=== PATIENT | male | born 1970 | race Hispanic/Latino ===

== ENCOUNTER 2025-05-08 16:40 | Emergency (ER) | payer OTHER ==
[~2025-05-08] VITALS: Ht 157.5 cm; Wt 101.2 kg
--- NOTE | 2025-05-08 16:49 | ERN ---
ED Note History of Present Illness Stated Complaint: ANXIETY, SOB, VOMITING Chief Complaint: Anxiety/Panic Attack Time Seen by MD: 16:43 Time Seen by Midlevel: 16:46 Dictation: Mr. Can is a 54 year old gentleman with history of obesity, hypertension, hyperlipidemia, anxiety, and obstructive sleep apnea who presented to the emergency department this afternoon for evaluation of anxiety. He states that he has been waking up feeling anxious and shortness of breath. This afternoon symptoms worsened and he was feeling chills, nausea, vomiting, and soft stools. He states he does smoke marijuana with last use yesterday. He denies fever, cough, chest pain, palpitations, edema, abdominal pain, hematemesis, constipation, melena, hematochezia, dysuria, headache, dizziness, or focal weakness/paresthesia. PCP: [facility] Allergies: Coded Allergies: No Known Drug Allergies (Unverified Allergy, Unknown, 05/08/25) Past Medical History Past Medical History: Anxiety, High Cholesterol, Hypertension, Other (Obesity, obstructive sleep apnea) PSYCH History: anxiety Family History: CAD Social History: Drugs (smokes marijuana) RN Note Reviewed/Agreed w/PFSH: Yes Review of System Dictation REVIEW OF SYSTEMS: CONSTITUTIONAL: Patient denies fevers, sweats and weight changes. Reports fatigue and chills. EYES: Patient denies any visual symptoms. EARS, NOSE, AND THROAT: No difficulties with hearing. No symptoms of rhinitis or sore throat. CARDIOVASCULAR: Patient denies chest pains, palpitations, orthopnea and paroxysmal nocturnal dyspnea. RESPIRATORY: No dyspnea on exertion, no wheezing or cough. Reports shortness of breath. GI: No constipation, abdominal pain, hematochezia or melena. Reports loose/soft stools. Reports nausea and vomiting. : No urinary hesitancy or dribbling. No nocturia or urinary frequency. No abnormal urethral discharge. MUSCULOSKELETAL: No myalgias or arthralgias. NEUROLOGIC: No chronic headaches, no seizures. Patient denies numbness, tingling or weakness. PSYCHIATRIC: Patient denies problems with mood disturbance. Reports feeling anxious. ENDOCRINE: No excessive urination or excessive thirst. DERMATOLOGIC: Patient denies any rashes or skin changes. Initial Vital Sign VS Vital Signs Date Time Temp Pulse Resp B/P (MAP) Pulse Ox O2 Delivery O2 Flow Rate FiO2 05/08/25 16:44 97.9 102 20 144/101 97 Room Air 0 05/08/25 17:44 21 Physical Exam Dictation Vital signs: Reviewed. Afebrile. Constitutional: Anxious. Head/Face: Normocephalic, atraumatic. Eyes: Periorbital areas with no swelling, redness, or edema. Lids and lashes are normal. Conjunctival injection is absent. Sclera anicteric. Pupils equal, round, reactive to light. ENT: Pinnas intact and no signs of trauma or erythema. Ear canals clear and no discharge. TMs no erythema. No nasal discharge or bleeding noted. Oropharynx with no exudate, redness, swelling, masses, exudates, or evidence of obstruction. Uvula midline. Mucous membranes moist. Neck: Trachea midline, no masses palpated, and no cervical lymphadenopathy. No swelling. Supple, full range of motion. Chest/Axilla: No tenderness, no crepitus, no paradoxical movement, no retractions. Cardiovascular: Regular rate, regular rhythm, no murmur, no gallops. Symmetric pulses. No peripheral edema. BP 144/101. Respiratory: Respirations even and unlabored. Lung sounds clear; no wheezes, rales or rhonchi. Room air spo2 97% Gastrointestinal:Obese. No distention is appreciated. Bowel sounds are normal. No mass or organomegaly . There is no tenderness. No rebound. No rigidity. No voluntary or involuntary guarding. No Almonte's sign. Neurological: Normal speech, gross motor function intact, gross sensory function intact. No focal weakness/Paresthesia. Musculoskeletal/Extremities: All extremities have full range of motion, no pain or tenderness on palpation. Symmetric pulses. Integumentary: Intact. Skin is normal color, warm and dry. Cap refill less than 3 seconds. Results (Laboratory/Radiology) Laboratory/Radiology Laboratory Tests Test 05/08/25 16:59 05/08/25 17:34 White Blood Count 6.6 K/uL (4.8-10.8) Red Blood Count 4.53 MIL/uL (4.50-6.20) Hemoglobin 15.5 g/dL (14.0-18.0) Hematocrit 45.2 % (42-54) Mean Corpuscular Volume 99.8 fL (79-99) H Mean Corpuscular Hemoglobin 34.2 pg (27.0-33.0) H Mean Corpuscular Hemoglobin Concent 34.3 g/dL (32.0-36.0) Red Cell Distribution Width 13.1 % (11.0-15.5) Platelet Count 186 K/uL (130-400) Mean Platelet Volume 10.0 fL (7.5-10.5) Immature Granulocyte % (Auto) 0.5 % (0-1) Neutrophils (%) (Auto) 66.9 % (40.0-77.0) Lymphocytes (%) (Auto) 18.1 % (21.0-51.0) L Monocytes (%) (Auto) 11.9 % (3.0-13.0) Eosinophils (%) (Auto) 2.3 % (0.0-8.0) Basophils (%) (Auto) 0.3 % (0.0-5.0) Neutrophils # (Auto) 4.4 K/uL (1.8-7.7) Lymphocytes # (Auto) 1.2 K/uL (1.0-4.8) Monocytes # (Auto) 0.8 K/uL (0.1-1.0) Eosinophils # (Auto) 0.15 K/uL (0.00-0.70) Basophils # (Auto) 0.02 K/uL (0.00-0.20) Absolute Immature Granulocyte (auto 0.03 K/uL (0-1) Nucleated Red Blood Cells 0.0 % (0.0-0.19) Sodium Level 136 mmol/L (136-145) Potassium Level 3.9 mmol/L (3.5-5.1) Chloride Level 102 mmol/L (101-111) Carbon Dioxide Level 29 mmol/L (21-32) Blood Urea Nitrogen 4 mg/dL (7-18) L Creatinine 0.9 mg/dL (0.5-1.3) Glomerular Filtration Rate Calc 100 mL/min (>90) Random Glucose 118 mg/dL (70-105) H Total Calcium 9.0 mg/dL (8.5-10.1) Total Bilirubin 0.5 mg/dL (0.2-1.0) Direct Bilirubin 0.1 mg/dL (0.0-0.3) Aspartate Amino Transf (AST/SGOT) 68 U/L (10-37) H Alanine Aminotransferase (ALT/SGPT) 83 U/L (12-78) H Alkaline Phosphatase 114 U/L (50-136) Troponin I High Sensitivity 4 ng/L (4-75) B-Type Natriuretic Peptide 35 pg/mL (0-100) Total Protein 7.9 g/dL (6.0-8.3) Albumin 3.6 g/dL (3.5-5.0) Urine Color COLORLESS (YELLOW) Urine Appearance CLEAR (CLEAR) Urine pH 6.5 (5.0-8.0) Urine Specific Hancock 1.003 (1.001-1.031) Urine Protein NEGATIVE mg/dL (NEGATIVE) Urine Glucose (UA) NEGATIVE mg/dL (NEGATIVE) Urine Ketones NEGATIVE mg/dL (NEGATIVE) Urine Occult Blood NEGATIVE (NEGATIVE) Urine Nitrate NEGATIVE (NEGATIVE) Urine Bilirubin NEGATIVE mg/dL (NEGATIVE) Urine Urobilinogen 0.2 mg/dL (0.2-1.0) Urine Leukocyte Esterase NEGATIVE Eleazar/uL Urine Opiates Screen NEGATIVE (NEGATIVE) Urine Barbiturates Screen NEGATIVE (NEGATIVE) Urine Phencyclidine Screen NEGATIVE (NEGATIVE) Urine Amphetamines Screen NEGATIVE (NEGATIVE) Urine Benzodiazepines Screen NEGATIVE (NEGATIVE) Urine Cocaine Screen NEGATIVE (NEGATIVE) Urine Marijuana (THC) Screen POSITIVE (NEGATIVE) H SARS-CoV-2, RNA, NAAT NEGATIVE SARS CoV-2 Labs Reviewed?: Yes EKG Comment: EKG Interpretation: Time Reviewed: 1651 Ventricular rate: 97 bpm NH Interval: 145 ms QRS duration: [address] segment elevation or depression. Clinical impression: Sinus rhythm EKG Reviewed and interpreted by: Dr. Evans Valencia X-RAY Comment: PATIENT: RADHA CAN JR MR#: [id number] : 1970 SEX: M AGE: 54 LOCATION: [facility] ORDER 48 STATUS: REG REPORT#: [id number] SERVICE 46 REASON: shortness of breath ORDERING PHYSICIAN: BIMAL HANNA NP PROCEDURE: CXR2VW - CHEST 2VWS CHEST 2VWS HISTORY: Shortness of breath COMPARISON: None FINDINGS: Frontal and lateral projections of the chest were obtained. There is no acute pulmonary infiltrates or failure. The heart is not enlarged. Degenerative changes are seen of the thoracolumbar spine. IMPRESSION: 1. No acute pulmonary infiltrates. DICTATED BY: DENISE MARTÍNEZ MD DATE: 05/08/251739 ELECTRONICALLY SIGNED BY: DENISE MARTÍNEZ MD DATE: 05/08/251743 ED Course ED Course Orders Procedure Category Date Status Time 12 Lead Ekg Tracing- EKG 05/08/25 Logged Technical 16:47 Influenza Type A & B, LAB 05/08/25 In Process Rapid 16:47 Covid Rna Naat LAB 05/08/25 In Process 16:47 Urinalysis Profile LAB 05/08/25 Complete 16:47 Drug Screen Urine LAB 05/08/25 Complete 16:47 Cbc With Differential LAB 05/08/25 Complete 16:47 Basic Metabolic Panel LAB 05/08/25 Complete 16:47 Hepatic Function Panel LAB 05/08/25 Complete 16:47 Troponin I High LAB 05/08/25 Complete Sensitivity 16:47 B-Type Natriuretic LAB 05/08/25 Complete Peptide 16:47 Chest 2vws RAD 05/08/25 Resulted 16:47 Ondansetron Odt 4mg PHA 05/08/25 Complete Tab (Zofran 4mg Odt) 17:00 Hydroxyzine 25mg Tab PHA 05/08/25 Complete (Atarax 25mg Tab) 17:30 Current Medications Medications (Trade) Dose Ordered Sig/Rachael Route PRN Reason Start Time Stop Time Status Last Admin Dose Admin Hydroxyzine HCl (ATArax 25MG TAB) 25 mg ONCE ONCE PO 05/08/25 17:30 05/08/25 17:46 DC 05/08/25 17:49 Ondansetron HCl (zoFRAN 4MG ODT) 4 mg ONCE ONCE SL 05/08/25 17:00 05/08/25 17:01 DC 05/08/25 17:49 Vital Signs Date Time Temp Pulse Resp B/P (MAP) Pulse Ox O2 Delivery O2 Flow Rate FiO2 05/08/25 17:44 98.1 100 16 145/92 98 Room Air* 0 21 05/08/25 16:44 97.9 102 20 144/101 97 Room Air 0 Uneventful ED course. Vital signs remained stable; afebrile and normotensive with room air SpO2 97-98%. Chest x-ray unremarkable with clear lung mari. Twelve lead EKG reflects a sinus rhythm, rate 97; no ST-elevation or depression. Laboratory findings as noted below. UDS + THC. UA clear. COVID and influenza A/B negative. No elevation of WBCs. H/H stable. Glucose 118, AST/ALT 68/83. There is no elevation of BNP or troponin. EWhile in the ED he received dose Zof ran and Hydrozyzine. He has been instructed to follow up tomorrow with [facility]. Medical Decision Making MDM MDM: Differential diagnosis: ACS, CAP, influenza A/B, COVID Rationale: Tests considered and ordered secondary to shared decision making include: EKG, lab, x-ray Previous outside records reviewed: Old ER visits. Risk of complication and/or morbidity or mortality of patient management: None Medications-Per medication reconciliation Need for hospitalization: Patient does not meet criteria for hospitalization. Need for emergency major/minor surgery: No There are no social concerns with this patient. Prescription drug management: Zofran, Hydroxyzine Prescriptions will include symptomatic care Patient's prior external medical records from other ER visits were reviewed by me as indicated. Prior testing and results from previous visits were reviewed. Prior tests were taken into account with medical decision making and resource utilization, independent historian/historians were used to obtain complete medical history. I independently interpreted the test that were performed, results were reviewed by me and considered findings on radiology if ordered. Medical management and examination interpretation discussions were had by me with other qualified healthcare professionals as indicated for the patient's care. DX & DISP Disposition: Discharge Departure Impression: Primary Impression: Insect bite Additional Impression: Anxiety Condition: Improved Scripts Ondansetron (Ondansetron Odt) 4 Mg Tab.rapdis 4 MG PO Q6HPRN PRN for nausea, #15 TAB 0 Refills Prov: BIMAL HANNA [employer] 05/08/25 Hydroxyzine HCl (Hydroxyzine HCl) 25 Mg Tablet 25 MG PO q8 hours PRN for ITCHING, #12 TAB 0 Refills Prov: BIMAL HANNA [employer]SULT[employer] 05/08/25 Additional Instructions: Rest. Drink plenty of fluids. Wash insect bites with soap/water; pat dry. May take hydroxyzine 25 mg every 8 hours as needed for itching. May take Zofran ODT every 6 hours as needed for nausea. Please follow up early this week with your PCP at the [facility]. I Referrals: SELF,REFERRAL (PCP) Time of Disposition: 18:05 BIMAL HANNA NP May 08, 2025 16:49
[2025-05-08 17:06] LABS: BASOPHILS # (AUTO) 0.02 K/uL (0.00-0.20); BASOPHILS % (AUTO) 0.3 % (0.0-5.0); EOSINOPHILS # (AUTO) 0.15 K/uL (0.00-0.70); EOSINOPHILS % (AUTO) 2.3 % (0.0-8.0); HEMATOCRIT 45.2 % (42-54); IMMATURE GRANULOCYTE ABSOLUTE 0.03 K/uL (0-1); LYMPHOCYTES # (AUTO) 1.2 K/uL (1.0-4.8); LYMPHOCYTES % (AUTO) 18.1 % (21.0-51.0); MEAN CORPUSCULAR HEMOGLOBIN 34.2 pg (27.0-33.0); MEAN CORPUSCULAR HGB CONC 34.3 g/dL (32.0-36.0); MEAN CORPUSCULAR VOLUME 99.8 fL (79-99); MONOCYTES # (AUTO) 0.8 K/uL (0.1-1.0); MONOCYTES % (AUTO) 11.9 % (3.0-13.0); NEUTROPHILS # (AUTO) 4.4 K/uL (1.8-7.7); NEUTROPHILS % (AUTO) 66.9 % (40.0-77.0); PLATELET COUNT (AUTO) 186 K/uL (130-400); RED BLOOD CELL COUNT(AUTO) 4.53 MIL/uL (4.50-6.20); RED CELL DISTRIBUTION WIDTH 13.1 % (11.0-15.5); WHITE BLOOD COUNT (AUTO) 6.6 K/uL (4.8-10.8)
[2025-05-08 17:15] LABS: CREATININE 0.9 mg/dL (0.5-1.3); POTASSIUM 3.9 mmol/L (3.5-5.1)
[2025-05-08 17:25] LABS: B-TYPE NATRIURETIC PEPTIDE 35 pg/mL (0-100)
[2025-05-08 17:27] LABS: ALBUMIN 3.6 g/dL (3.5-5.0); BILIRUBIN,DIRECT 0.1 mg/dL (0.0-0.3); BILIRUBIN,TOTAL 0.5 mg/dL (0.2-1.0); TOTAL PROTEIN, SERUM 7.9 g/dL (6.0-8.3)
[2025-05-08 17:44] VITALS: BP 145/92; PULSE 100; RESP 16; TEMP 98.1; O2SAT 98
--- NOTE | 2025-05-08 17:44 | HMCIMG ---
CHEST 2VWS HISTORY: Shortness of breath COMPARISON: None FINDINGS: Frontal and lateral projections of the chest were obtained. There is no acute pulmonary infiltrates or failure. The heart is not enlarged. Degenerative changes are seen of the thoracolumbar spine. IMPRESSION: 1. No acute pulmonary infiltrates.
[2025-05-08 17:47] LABS: APPEARANCE,URINE CLEAR (CLEAR); BILIRUBIN,URINE NEGATIVE (NEGATIVE); COLOR,URINE COLORLESS (YELLOW); GLUCOSE, URINE (UA) NEGATIVE (NEGATIVE); KETONES,URINE NEGATIVE (NEGATIVE); LEUKOCYTE ESTERASE ,URINE NEGATIVE Leu/uL (NEGATIVE); NITRATE,URINE NEGATIVE (NEGATIVE); OCCULT BLOOD,URINE NEGATIVE (NEGATIVE); PH,URINE 6.5 (5.0-8.0); PROTEIN,URINE NEGATIVE (NEGATIVE); UROBILINOGEN,URINE 0.2 mg/dL (0.2-1.0)
[2025-05-08 17:48] LABS: ADD UA MICROSCOPIC NO
[2025-05-08] MEDS: hydrOXYzine 25 MG TABLET PO ONE (17:49)
[2025-05-08] MEDS: ondanSETRON ODT 4MG TAB SL ONE (17:49)
[2025-05-08 17:53] LABS: AMPHET/METH SCREEN,URINE NEGATIVE (NEGATIVE); BARBITURATE SCREEN, URINE NEGATIVE (NEGATIVE); BENZODIAZEPINES SCREEN,URINE NEGATIVE (NEGATIVE); CANNABINOID SCREEN,URINE POSITIVE (NEGATIVE); COCAINE SCREEN,URINE NEGATIVE (NEGATIVE); OPIATE SCREEN,URINE NEGATIVE (NEGATIVE); PHENCYCLIDINE SCREEN,URINE NEGATIVE (NEGATIVE)
[2025-05-08 17:58] LABS: SARS-CoV-2, RNA, NAAT NEGATIVE SARS CoV-2 (NEGATIVE)
[2025-05-08 18:04] LABS: INFLUENZA TYPE A Negative For Type A (NEGATIVE); INFLUENZA TYPE B Negative For Type B (NEGATIVE)
[2025-05-08] MEDS ORDERED: HYDR-3421 PO (18:04)
[2025-05-08] MEDS ORDERED: ONDA-243 PO (18:04)
--- NOTE | 2025-05-09 04:53 | EKG ---
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
== END 2025-05-08 18:26 | disposition home or self-care (01) ==
LOC: EDH 16:40
DX: S30.861A Insect bite (nonvenomous) of abdominal wall, initial encounter (principal); F41.9 Anxiety disorder, unspecified; E66.9 Obesity, unspecified; E78.00 Pure hypercholesterolemia, unspecified; I10 Essential (primary) hypertension; Z20.822 Contact with and (suspected) exposure to COVID-19; W57.XXXA Bitten or stung by nonvenomous insect and other nonvenomous arthropods, initial encounter
CPT/HCPCS: 36415; 71046; 80048; 80076; 80305; 81003; 83880; 84484; 85025; 87635; 87804; 93005; 99284; 99285